=== PATIENT | male | born 1995 | race Caucasian/White ===

== ENCOUNTER 2020-03-10 07:50 | Outpatient (REF) | payer OTHER, SELFPAY | END 2020-03-10 07:51 | disposition home or self-care (01) | LOC: HO.LAB 07:50 | PROVIDERS: Visit Provider Internal Medicine | DX: Z20.828 Contact with and (suspected) exposure to other viral communicable diseases (principal) | CPT/HCPCS: C9803; U0003 ==

== ENCOUNTER 2020-06-04 09:00 | Emergency (ER) | payer OTHER, SELFPAY ==
--- NOTE | ~2020-06-04 | XR_ITS ---
EXAMINATION: XR KNEE, RIGHT CLINICAL INFORMATION: Pain status post injury COMPARISON: February 17, 2017 TECHNIQUE: Three views of the right knee. FINDINGS: There is no evidence of acute fracture or dislocation of the right knee. Right knee joint spaces are maintained. No effusion. There is a spur about the inferior patella where on prior study of February 17, 2017 and appeared to been a secondary ossification center which may have now fused. XR/XR knee RT 2V IMPRESSION: No evidence of acute fracture, effusion, or significant degenerative change of the right knee. Inferior patella spur.
[2020-06-04 11:34] VITALS: BP 125/86; PULSE 68; RESP 16; TEMP 36.4; O2SAT 98; BMI 23.1
--- NOTE | 2020-06-04 12:30 | ED_ITS ---
HPI - Extremity Injury (Lower) General Chief Complaint: Extremity Injury, Lower Stated Complaint: knee injury Time Seen by Provider: 06/04/20 11:29 Source: patient Mode of arrival: ambulatory Limitations: no limitations History of Present Illness HPI Narrative: Right knee pain after twisting in bed while changing position. States he has had prior knee injuries with with similar-type pains in setting of strains. complaint: knee injury Onset (ago): hour(s) Place: home Severity: moderate Severity scale (1-10): 5 Relieving factors: immobilization Exacerbating factors: movement Context: other (Twisted while changing position bed) Associated symptoms: able to partially bear weight Treatments prior to arrival: other (Crutches) Related Data Allergies Allergy/AdvReac Type Severity Reaction Status Date / Time amoxicillin [From AUGMENTIN] Allergy Unknown UNKNOWN Unverified 01/03/20 16:38 clavulanic acid Allergy Unknown UNKNOWN Unverified 01/03/20 16:38 [From AUGMENTIN] Review of Systems Review of Systems: Constitutional: No Weight loss, No Fever, No Chills, No Night Sweats, No Fatigue, No Malaise ENT/Mouth: No Hearing loss, No Ear Pain, No Nasal Congestion, No Sinus Pain, No Hoarseness, No sore throat, No Rhinorrhea, No Swallowing Difficulty Eyes: Negative Cardiovascular: Negative Respiratory: Negative Gastrointestinal: Negative Musculoskeletal: No joint pain, No Myalgias, No Joint Swelling, right knee pain as noted HPI Skin: No Skin Lesions, No rash Neuro: No Weakness, No Numbness, No Paresthesias, No Loss of Consciousness, No Dizziness, No Headache Psych: Negative Heme/Lymph: Negative Endocrine: Negative Yes all other systems are reviewed and are negative [facility] Past Medical History Medical History (Updated 06/04/20 @ 12:36 by Travis Lopez NP) No known health problems Social History Social History Smoked in Last 30 Days: No Use of substances other than those prescribed or required for medical reasons: No Advance Directives: No Advance Directives Information Provided: No Physical Exam Vital Signs: Vital Signs: Last Vital Signs Temp 97.6 F 06/04/20 11:34 Pulse 68 06/04/20 11:34 Resp 16 06/04/20 11:34 BP 125/86 06/04/20 11:34 Pulse Ox 98 06/04/20 11:34 Body Mass Index 23.1 Review Const: General: cooperative and healthy appearing; No acute distress or intoxicated appearing Nutritional Appearance: average body habitus Orientation/consciousness: patient oriented x3 HENMT: Head: Yes normal to inspection Ears: hearing grossly normal bilaterally Resp: Auscultation: clear to auscultation bilaterally Cardio: Rhythm: regular rhythm Heart sounds: S1 normal heart sound present and S2 normal heart sound present : General: Yes no CVA tenderness Back/Spine/Pelvis: Back: no CVA tenderness Skin: General skin exam: no rashes or lesions noted Neuro: General: patient oriented x3 Extrem: General: Yes normal to inspection Upper/lower leg/hip images: 1. Tender palpation over the medial aspect. No obvious ecchymoses or swelling were evidence of effusion. No edema or swelling, negative Homans. Neurovascularly intact. MDM - Extremity Injury (Lower) MDM Narrative Medical decision making narrative: AP 24-year-old male otherwise healthy presenting with right knee pain in the setting of twisting like injury consistent with strain type injury. X-ray without evidence of acute findings. Has crutches will provide Chavez wrap and NSAIDs with home care instructions and follow-up instructions with orthopedics. Comfortable plan. Stable for discharge. Discharge Plan Discharge Clinical Impression: Knee strain Qualifiers: Encounter type: initial encounter Laterality: right Qualified Code(s): S86.911A - Strain of unspecified muscle(s) and tendon(s) at lower leg level, right leg, initial encounter Patient Disposition: Home, Self-Care Instructions: Knee Pain (ED) Additional Instructions: Ice Elevate Compress Weightbearing as tolerated Crutches for comfort Return if any concerns or worsening symptoms otherwise follow-up with primary care doctor in next 1 week Thank you Referrals: Physician,None [Primary Care Provider] - 1 week
== END 2020-06-04 12:44 | disposition home or self-care (01) ==
PROVIDERS: Emergency Provider Emergency Medicine
DX: S86.911A Strain of unspecified muscle(s) and tendon(s) at lower leg level, right leg, initial encounter (principal); M79.604 Pain in right leg; X50.1XXA Overexertion from prolonged static or awkward postures, initial encounter; Y93.01 Activity, walking, marching and hiking; Y92.9 Unspecified place or not applicable; Y99.9 Unspecified external cause status
CPT/HCPCS: 73560; 99283

== ENCOUNTER 2020-09-08 10:21 | Outpatient (REF) | payer OTHER, SELFPAY ==
--- NOTE | ~2020-09-08 | XR_ITS ---
EXAMINATION: XR HAND, RIGHT CLINICAL INFORMATION: Pain right hand. COMPARISON: None TECHNIQUE: Right hand is imaged in 4 views. FINDINGS: There is fracture base right 5th metacarpal, likely comminuted and minimally displaced. Fracture line is faint, possibly subacute injury. There is no destructive process or dislocation. The ulnar variance is near neutral. The remainder of the bony structures appear intact. XR/XR hand RT min 3V IMPRESSION: Fracture base right 5th metacarpal.
== END 2020-09-08 10:22 | disposition home or self-care (01) ==
LOC: HO.HOSX 10:21
PROVIDERS: Visit Provider Orthopaedic Surgery
DX: S62.316D Displaced fracture of base of fifth metacarpal bone, right hand, subsequent encounter for fracture with routine healing (principal); X58.XXXD Exposure to other specified factors, subsequent encounter
CPT/HCPCS: 73130; 99202

== ENCOUNTER 2020-09-29 09:52 | Outpatient (REF) | payer OTHER, SELFPAY ==
--- NOTE | ~2020-09-29 | XR_ITS ---
EXAMINATION: XR WRIST, RIGHT CLINICAL INFORMATION: Fracture base fifth metacarpal COMPARISON: Radiographs right hand 09/08/2020. TECHNIQUE: PA, lateral, and oblique views of the right wrist. FINDINGS: The fracture base fifth metacarpal is unchanged in alignment. The fracture lines are less distinct. There is no dislocation or destructive process. No acute bony abnormality. XR/XR wrist RT min 3V IMPRESSION: Healing fracture base fifth metacarpal. No change in alignment.
== END 2020-09-29 09:53 | disposition home or self-care (01) ==
LOC: HO.HOSX 09:52
PROVIDERS: Visit Provider Orthopaedic Surgery
DX: M25.531 Pain in right wrist (principal); S62.13 Fracture of capitate [os magnum] bone; S62.316D Displaced fracture of base of fifth metacarpal bone, right hand, subsequent encounter for fracture with routine healing
CPT/HCPCS: 73110; 99212

== ENCOUNTER 2024-07-26 08:49 | Emergency (ER) | payer MEDICAID, SELFPAY ==
--- NOTE | ~2024-07-26 | XR_ITS ---
EXAMINATION: XR SACRUM AND COCCYX CLINICAL INFORMATION: fell on buttock, pain COMPARISON: None available. TECHNIQUE: 2 views of the sacrum and 2 views of the coccyx were obtained. FINDINGS: There are no fractures. No bone, joint or soft tissue abnormality is demonstrated. XR/XR sacrum coccyx min 2V IMPRESSION: Unremarkable sacrum and coccyx. SI joints unremarkable. Electronically signed by: Herbert Dalton MD 07/26/2024 11:23 AM EDT
[2024-07-26 08:52] VITALS: BP 133/94; PULSE 76; RESP 16; TEMP 36.2; O2SAT 97; BMI 26.9
--- NOTE | 2024-07-26 10:44 | ED_ITS ---
HPI - Back Pain/Injury General Chief Complaint: Back Pain/Injury Stated Complaint: tail bone pain Time Seen by Provider: 07/26/24 09:57 History of Present Illness ED Provider: Sasha Lee PA-C HPI Narrative: Patient seeks medical attention in emergency department today for evaluation of tailbone pain. About 3 years ago while patient was playing basketball he went to go jump up and he landed directly down on his butt injuring his tailbone. He reports every now and then having sensitivity to this area especially if he sits for too long. Yesterday he only sat down on the hard floor for approximately 1- 2 minutes but as soon as he got up he has felt pain there. He did have a bowel movement this morning which exacerbated the pain at the tip of his tailbone but reports a bowel movement in itself was not painful around his rectum was of normal caliber and he did not notice any blood while wiping. He denies any abdominal discomfort and does not feel nauseous. There has been no new trauma to the area. No rashes it does not itch or burn. Is a generalized ache that is worse with movement. He has tried Tylenol but it has not helped. He even tried a massage gun but that too did not help. He denies any symptoms or saddle anesthesia. When he goes to change positions sometimes pain does radiate down his legs but not in a specific dermatomal pattern does not experience any weakness paresthesias or numbness. No upper back pain and no mid back pain either.Patient denies personal history of cancer, IVDU, fevers, chills, night sweats, unintentional wt loss, saddle anesthesia, and change/loss in bladder/ bowel function. Related Data Home Medications ?Medication ?Instructions ?Recorded ?Confirmed No Known Home Meds 09/08/20 09/08/20 Allergies Allergy/AdvReac Type Severity Reaction Status Date / Time amoxicillin [From AUGMENTIN] Allergy Unknown UNKNOWN Verified 07/26/24 08:53 clavulanic acid Allergy Unknown UNKNOWN Verified 07/26/24 08:53 [From AUGMENTIN] Review of Systems Review of Systems: Yes all other systems are reviewed and are negative [facility] Past Medical History Attestation statement: The following information was validated with the patient. 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 No septic or ill-appearing. Vitals reviewed normal, PMH/Social and Surgical hx reviewed including allergies and current medications. Head: Normocephalic, no obvious trauma or skin lesions noted. Eyes: EOMI ENMT: moist oral mucosa Neck: trachea midline Cardiovascular: peripheral perfusion normal, Regular heart rate Respiratory: no respiratory distress Abdomen: nondistended Extremities: warm and moving without difficulty and no pain reproduced in tail bone area with limb movement, sensation fully intact Musculoskeletal: No midline tenderness, step-offs, or deformities of entire spine. TTP over coccygeal region only without skin changes, swelling, or ecchymosis /erythema Psych: Cooperative Neuro: Alert and oriented. Const: General: cooperative and healthy appearing Medical Decision Making Medical Decision Making MDM Narrative: Patient presents to the emergency department today for evaluation of [facility] in. MARYA is fall from three years ago with intermittent reinjurying via sitting. This is not work related. Patient is afebrile with stable vitals and well-appearing. History and physical as stated above. Patient is neurovascular intact. No infectious sxs, no rashes on skin or swelling concerning for pilonidal disease. No cellulitis present. X- rays were obtained to further evaluate sacrum/pelvic region. 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 He wanted reassurance. They show no acute fractures. Patient's symptoms are consistent with a sprain.Discussed icing it, elevating and alternating ibuprofen and Tylenol for discomfort. Discussed that if there is no significant improvement in the next 1 to 2 weeks to follow-up with an orthopedic clinic, information given. Discussed symptomatic treatment with the patient. Discussed return precautions. Patient verbalized understanding of the above plan and is in agreement with the above plan. The patient was discharged home in stable condition with return precautions. Differential Diagnosis Differential Diagnoses: The differential diagnosis associated with the presentation includes See MDM Admission/Observation Consideration of admission/observation: Escalation of care including admission/observation considered Patient would have been admitted to the hospital had his work up and clinical presentation had any findings where hospital admission was appropriate. Independent Interpretation I performed an independent interpretation of an: Plain X-Ray Interpretation: No fracture or obvious dislocation. Radiology Impression Discussion of test interpretation with radiology: I have reviewed the radiologist's reading. Radiologist Impression: no fracture. Tests considered The following testing was considered but not selected: Would have considered soft tissue ultrasound/ CT scan of pelvis if there was abscess or swelling in this area or any pain out proportion on exam. If patient was ill appearing, would have considered basic lab screening or potential sepsis work up if met criteria for it. Prescription Management I considered prescription management with: Pain Medication and Antibiotic No infection, PO abx not indicated. Pain well controlled, OTC care recommended on donut style cushion. Discharge Plan Discharge Clinical Impression: Sprain of coccyx Patient Disposition: Home, Self-Care Additional Instructions: You were evaluated for lower back pain specifically over your cecum coccyx area. There is no indication of any abscess formation other soft tissue injury. Likely sequela of old coccygeal sprain. Xray results: IMPRESSION: Unremarkable sacrum and coccyx. SI joints unremarkable. It is recommended, you try istting on a doughnut-style cushion to help prevent any additional stress on this area. Use Motrin/Advil (ibuprofen) 600 mg every 6 hours. Take this with food. Take this regularly for the next 3-5 days and then as needed. In addition, You can use Tylenol (acetaminophen) 650 mg every 6 hrs as needed for pain. ?Do not take more than 3000 mg in one day! Use intermittent heat 4 or 5 times a day, 20 minutes at a time, ?for a few days. You may use topical therapy such as IcyHot with Lidocaine or Aspercream with Lidocaine, both of which are available over the counter. Do not perform any heavy lifting. Go immediately to the Emergency Department if you develop any increased or uncontrolled pain, numbness, tingling, or weakness of the extremities, difficulty urinating or passing stools. Please see your doctor or an orthopedist if not improving over the next 1-2 weeks. Referrals: [facility] [place] [facility] [Provider Group] - 1 week Stand Alone Forms: Work/School Release Interventions: ED Discharge Assessment Last Done: 07/26/24 11:57 Discharge Date/Time: 07/26/24 11:58 Print Language: Beninese
--- OUTSIDE RECORDS SUMMARY | 2024-07-26 11:17 | XMS_ITS | Clinical Summary ---
Author Organization [facility] Address [address] [place] [address] Phone Care Team Providers Care Cardiovascular Tech Name Role Phone Unavailable Primary Care Provider Unavailabl e Immunizations Immunization Administration Dates Next Due DTP 01/16/1996 DTaP 5 08/03/2000, 7,05/21/1996,03/19 H1N1 03/11/2009 HPV, Quadrivalent 05/28/2011,06/09/2010,04/07/20 10 Hep A, Adult 02/12/2015 Hep A, ped/adol 12/18/2013 Hep B, ped/adol 05/21/1996,01/16/1996,1995 Hib (PRP-T) 1996, 7,03/19/1996,01/15 IPV 08/03/2000,05/21/1996,03/19/1996 Influenza Split 01/26/2012,05/28/2011,01/01/2010 Influenza, injectable, quadrivalent 02/12/2015 Influenza, injectable, quadr ivalent, preservative free 06/25/2016 Influenza, injectable, trivalent 12/30/2008,01/17,01/31/2007 MMR 08/03/2000,1996 Meningococcal Conj (Menactra) MCV4P 06/25/2016,1 06/01/2006 OPV 01/16/1996 Tdap 03/31/2007 Varicella 04/05/2008,07/14/1998 Family History Relation Name Status Comments Father Alive Father: Alive a nd well Half-Brother Alive Half brother (M ): Alive and well Maternal Grandfather Alive Materna l grandfather: Asthma, Diabetes Maternal Grandmother Alive Materna l grandmother: Asthma, Migraines Mother Alive Mother: Diabete s, Migraines, IBS Other No family histo ry of CVA (Stroke), No family history of Heart disease, No family history of Sudden /[place] under age 55, No family history of Thrombophilia, No family history of Dental caries Sister Alive Sister: Asthma Social History Tobacco Use Types Packs/Day Years Used Date Smoking Tobacco: Never Comments:Never smoker Sex and Gender Information Value Date Recorded Sex Assigned at Not on file Legal Sex Male 5:00 PM EDT Gender Identity Not on file Sexual Orientation Not on file Last Filed Vital Signs Vital Sign Reading Time Taken Comments Blood Pressure 108/68 06/25/2016 12:00 AM EST Pulse 74 06/25/2016 12:00 AM EST Temperature 36.8 ??C (98.3 ??F) 06/25/2016 12:[address] Respiratory Rate - - Oxygen Saturation - - Inhaled Oxygen Concentration - - Weight 68.5 kg (151 lb) 06/25/2016 12:00 AM EST Height 186.1 cm (6' 1.25 ) 06/25/2016 12:[address] Body Mass Index 19.79 06/25/2016 12:00 AM EST Plan of Treatment Health Maintenance Due Date Last Done Comments DTaP,Tdap,and Td Vaccines (7 - Td or Tdap) 03/31/2017 03/31/2007, 08/03/2000, 04/10/1997, Additional history exists Influenza Vaccines (#1) 2023 06/26/19 17, 02/12/2015, 01/26/2012, Additional history exists COVID-19 Vaccine ( season) 2023 Hepatitis B Vaccines Completed 05/21/1996, 01/16/1996, 1995 HIB Vaccines Completed 1996, 06/1996, 03/19/1996, Additional history exists IPV Vaccines Completed 08/03/2000, 06/1996, 03/19/1996, Additional history exists MMR Vaccines Completed 08/03/2000, 1996 Varicella Vaccines Completed 04/05/2008, 07/14/1998 HPV Vaccines Completed 05/28/2011, 05/20, 04/07/2010 Hepatitis A Vaccines Completed 02/12/2015, 12/19/19 14 Meningococcal Vaccine Aged Out 06/25/2016, 007 No longer eligible based on patient's age to complete this topic Men B Vaccine Aged Out No longer elig ible based on patient's age to complete this topic Pneumococcal Vaccine Aged Out No long er eligible based on patient's age to complete this topic
--- OUTSIDE RECORDS SUMMARY | 2024-07-26 11:17 | XMS_ITS | Encounter Summary ---
Author Organization [facility] Address [address] [place] [phone] Phone Care Team Providers Care Brand Marketing Specialist Name Role Phone Unavailable Primary Care Provider Unavailabl e Encounter Details Date Type Department Care Team (Late st Contact Info) Description 06/01/2011 Documentation [facility] Family Medicine [address] [place] [address] Family Medicine, Physician [facility] [place] [id number] Social History Tobacco Use Types Packs/Day Years Used Date Smoking Tobacco: Never Assessed Sex and Gender Information Value Date Recorded Sex Assigned at Not on file Legal Sex Male 5:00 PM EDT Gender Identity Not on file Sexual Orientation Not on file documented as of this encounter Plan of Treatment Not on file documented as of this encounter Visit Diagnoses Not on filedocumented in this encounter
--- OUTSIDE RECORDS SUMMARY | 2024-07-26 11:17 | XMS_ITS | Encounter Summary ---
Author Organization [facility] Address [address] [place] [phone] Phone Care Team Providers Care Laboratory Chief Name Role Phone Unavailable Primary Care Provider Unavailabl e Encounter Details Date Type Department Care Team (Late st Contact Info) Description 05/28/2013 Documentation [facility] Family Medicine [address] [place] [address] Family Medicine, Physician [facility] [place], [place] [phone] Social History Tobacco Use Types Packs/Day Years [...]
--- OUTSIDE RECORDS SUMMARY | 2024-07-26 11:17 | XMS_ITS | Encounter Summary ---
Author Organization [facility] Address [address] [place] [address] Phone Care Team Providers Care Crane Engineer Name Role Phone Unavailable Primary Care Provider Unavailabl e Encounter Details Date Type Department Care Team (Late st Contact Info) Description 08/17/2011 Documentation [facility] Family Medicine [address] [place] [address] Family Medicine, Physician [address] [place] [phone] Social History Tobacco Use Types Packs/Day Years [...]
--- OUTSIDE RECORDS SUMMARY | 2024-07-26 11:17 | XMS_ITS | Encounter Summary ---
Author Organization [facility] Address [address] [place] [address] Phone Care Team Providers Care Humanities Department Chair Name Role Phone Unavailable Primary Care Provider Unavailabl e Encounter Details Date Type Department Care Team (Late st Contact Info) Description 03/08/2012 Documentation [facility] Family Medicine [address] [place] [address] Family Medicine, Physician [address] [place] [phone] Social History Tobacco Use Types Packs/Day Years [...]
--- OUTSIDE RECORDS SUMMARY | 2024-07-26 11:17 | XMS_ITS | Encounter Summary ---
Author Organization [facility] Address [address] [place] [address] Phone Care Team Providers Care Financial Adviser Name Role Phone Unavailable Primary Care Provider Unavailabl e Encounter Details Date Type Department Care Team (Late st Contact Info) Description 12/02/2016 Documentation [facility] [place] [address] Family Medicine, Physician [facility] [place] [address] Social History Tobacco Use Types Packs/Day Years [...]
--- OUTSIDE RECORDS SUMMARY | 2024-07-26 11:18 | XMS_ITS | Encounter Summary ---
Author Organization [facility] Address [address] [place] [phone] Phone Care Team Providers Care Motor Vehicle License Clerk Name Role Phone Unavailable Primary Care Provider Unavailabl e Encounter Details Date Type Department Care Team (Late st Contact Info) Description 01/05/2010 Documentation [facility] Family Medicine [address] [place] [address] Family Medicine, Physician [address] [place] [phone] Social History Tobacco Use Types Packs/Day Years [...]
--- OUTSIDE RECORDS SUMMARY | 2024-07-26 11:18 | XMS_ITS | Encounter Summary ---
Author Organization [facility] Address [address] [place] [phone] Phone Care Team Providers Care Metal Mine Inspector Name Role Phone Unavailable Primary Care Provider Unavailabl e Encounter Details Date Type Department Care Team (Late st Contact Info) Description 03/17/2015 Documentation [facility] Family Medicine [address] [place] [address] Family Medicine, Physician [place] [address] Social History Tobacco Use Types Packs/Day Years [...]
--- OUTSIDE RECORDS SUMMARY | 2024-07-26 11:18 | XMS_ITS | Encounter Summary ---
Author Organization [facility] Address [address] [place] [address] Phone Care Team Providers Care Machine Operator Packaging Name Role Phone Unavailable Primary Care Provider Unavailabl e Encounter Details Date Type Department Care Team (Late st Contact Info) Description 12/02/2016 Conversion Encounter [facility] - [address] [address] Social History Tobacco Use Types Packs/Day Years [...]
--- OUTSIDE RECORDS SUMMARY | 2024-07-26 11:18 | XMS_ITS | Encounter Summary ---
Author Organization [facility] Address [address] [place] [address] Phone Care Team Providers Care Knotter Hand Name Role Phone Unavailable Primary Care Provider Unavailabl e Encounter Details Date Type Department Care Team (Late st Contact Info) Description 01/16/2015 Documentation [facility] Family Medicine [address] [place] [address] Family Medicine, Physician [address] [place] [address] Social History Tobacco Use Types Packs/Day Years [...]
[2024-07-26 11:57] VITALS: BP 133/94; PULSE 76; RESP 16; TEMP 36.2; O2SAT 97
== END 2024-07-26 11:58 | disposition home or self-care (01) ==
PROVIDERS: Emergency Provider Emergency Medicine
DX: S33.8XXA Sprain of other parts of lumbar spine and pelvis, initial encounter (principal); X50.1XXA Overexertion from prolonged static or awkward postures, initial encounter; X50.3XXA Overexertion from repetitive movements, initial encounter; M54.50 Low back pain, unspecified; Y93.67 Activity, basketball; Y92.89 Other specified places as the place of occurrence of the external cause; Y99.8 Other external cause status
CPT/HCPCS: 72220; 99283

== ENCOUNTER → 2024-07-26 10:41 | Outpatient (BNV) | payer OTHER, SELFPAY | PROVIDERS: Emergency Provider Emergency Medicine; Visit Provider Radiology Diagnostic Radiology | DX: M54.50 Low back pain, unspecified (principal); W19.XXXA Unspecified fall, initial encounter | CPT/HCPCS: 72220 ==

== ENCOUNTER 2024-08-13 06:04 | Emergency (ER) | payer MEDICAID, SELFPAY ==
--- NOTE | ~2024-08-13 | CT_ITS ---
CLINICAL HISTORY: r flank pain ?stone CT abdomen and pelvis without contrast Comparison: None Findings: No consolidation or effusion. Right-sided hydroureteronephrosis with a 3 x 3 mm stone in the distal right ureter just proximal to the ureterovesical junction. No other stones. The liver, gallbladder and biliary tree, pancreas, spleen and adrenal glands are unremarkable. No bowel obstruction, pneumoperitoneum, or pneumatosis. Pelvic contents unremarkable. Normal appendix. The bones are intact. IMPRESSION: 3 x 3 mm stone in the distal right ureter with upstream hydroureteronephrosis. This document has been electronically signed by: Danica Rubi MD on 08/13/2024 07:18:21
[2024-08-13 06:05] VITALS: PULSE 79; RESP 18; TEMP 36.2; O2SAT 100; BMI 27.0
--- OUTSIDE RECORDS SUMMARY | 2024-08-13 06:19 | XMS_ITS | Encounter Summary ---
Author Organization [facility] Address [address] [place] [phone] Phone Care Team Providers Care Systems Lead Name Role Phone Unavailable Primary Care Provider Unavailabl e Encounter Details Date Type Department Care Team (Late st Contact Info) Description 01/16/2015 Documentation EM Family Medicine [address] [place] [address] Family Medicine, Physician [address] [place] [address] Social History Tobacco Use Types Packs/Day Years [...]
--- OUTSIDE RECORDS SUMMARY | 2024-08-13 06:19 | XMS_ITS | Encounter Summary ---
Author Organization [facility] Address [address] [place] [phone] Phone Care Team Providers Care Professional Security Officer Name Role Phone Unavailable Primary Care Provider Unavailabl e Encounter Details Date Type Department Care Team (Late st Contact Info) Description 03/08/2012 Documentation [facility] Family Medicine [address] [place] [address] Family Medicine, Physician [address] [place], [place] [phone] Social History Tobacco Use Types Packs/Day Years [...]
--- OUTSIDE RECORDS SUMMARY | 2024-08-13 06:19 | XMS_ITS | Encounter Summary ---
Author Organization [facility] Address [address] [place] [address] Phone Care Team Providers Care Oracle Programmer Analyst Name Role Phone Unavailable Primary Care Provider Unavailabl e Encounter Details Date Type Department Care Team (Late st Contact Info) Description 01/05/2010 Documentation EM Family Medicine [address] [place] [address] Family Medicine, Physician [address] [place], [place] [phone] Social History Tobacco Use Types Packs/Day Years [...]
--- OUTSIDE RECORDS SUMMARY | 2024-08-13 06:19 | XMS_ITS | Encounter Summary ---
Author Organization [facility] Address [address] [place] [address] Phone Care Team Providers Care Automatic Embroidery Machine Tender Name Role Phone Unavailable Primary Care Provider Unavailabl e Encounter Details Date Type Department Care Team (Late st Contact Info) Description 12/02/2016 Conversion Encounter [facility] - [address] [address] Social History Tobacco Use Types Packs/Day Years [...]
--- OUTSIDE RECORDS SUMMARY | 2024-08-13 06:19 | XMS_ITS | Clinical Summary ---
Author Organization [facility] Address [address] [place] [address] Phone Care Team Providers Care Director Safety Name Role Phone Unavailable Primary Care Provider [...] Heart disease, No family history of Sudden /PR under age 55, No family history of [...]
--- OUTSIDE RECORDS SUMMARY | 2024-08-13 06:19 | XMS_ITS | Encounter Summary ---
Author Organization [facility] Address [address] [place] [address] Phone Care Team Providers Care Outsole Beveler Name Role Phone Unavailable Primary Care Provider Unavailabl e Encounter Details Date Type Department Care Team (Late st Contact Info) Description 03/17/2015 Documentation [facility] Family Medicine [address] [place] [address] Family Medicine, Physician [facility] [place] [address] Social History Tobacco Use Types Packs/Day Years [...]
--- OUTSIDE RECORDS SUMMARY | 2024-08-13 06:19 | XMS_ITS | Encounter Summary ---
Author Organization [facility] Address [address] [place] [address] Phone Care Team Providers Care Jewelry Estimator Name Role Phone Unavailable Primary Care Provider Unavailabl e Encounter Details Date Type Department Care Team (Late st Contact Info) Description 12/02/2016 Documentation [facility] [place] [address] Family Medicine, Physician [facility] [place] [address] Social History Tobacco Use Types Packs/Day Years [...]
--- OUTSIDE RECORDS SUMMARY | 2024-08-13 06:19 | XMS_ITS | Encounter Summary ---
Author Organization [facility] Address [address] [place] [address] Phone Care Team Providers Care Wet Silk Hanger Name Role Phone Unavailable Primary Care Provider Unavailabl e Encounter Details Date Type Department Care Team (Late st Contact Info) Description 08/17/2011 Documentation EM Family Medicine [address] [place] [address] Family Medicine, Physician [address] [place], [place] [phone] Social History Tobacco Use Types Packs/Day Years [...]
--- OUTSIDE RECORDS SUMMARY | 2024-08-13 06:19 | XMS_ITS | Encounter Summary ---
Author Organization [facility] Address [address] [place] [address] Phone Care Team Providers Care [employer] Nurse Name Role Phone Unavailable Primary Care Provider Unavailabl e Encounter Details Date Type Department Care Team (Late st Contact Info) Description 06/01/2011 Documentation EM Family Medicine [address] [place] [address] Family Medicine, [facility] [place], [place] [phone] Social History Tobacco Use Types Packs/Day Years [...]
[2024-08-13 06:30] LABS: MANUAL DIFF FLAG NO
[2024-08-13 06:31] LABS: Basophils Absolute Auto 0.1 X10*3/uL (0.0-0.2); Basophils Percent Auto 0.9 % (0-2); Eosinophils Absolute Auto 0.1 X10*3/uL (0.0-0.4); Eosinophils Percent Auto 1.5 % (0-4); Hematocrit 42.6 % (42.0-52.0); Imm Gran Abs Auto 0.07 X10*3/uL (0.00-0.03); Imm Gran Pct Auto 0.8 % (0.0-0.4); Lymphocytes Absolute Auto 4.2 X10*3/uL (1.2-4.9); Lymphocytes Percent Auto 48.9 % (20-40); Mean Corpuscular HGB Conc 35.2 g/dl (31.0-36.0); Mean Corpuscular Hemoglobin 29.6 pg (27.0-33.0); Mean Corpuscular Volume 84.2 fL (80.0-98.0); Mean Platelet Volume 9.4 fL (9.4-12.4); Monocytes Absolute Auto 0.7 X10*3/uL (0.1-1.2); Monocytes Percent Auto 7.9 % (2-11); Neutrophils Absolute Auto 3.4 x10*3/uL (2.0-8.3); Platelet Count 242 X10*3/uL (160-400); Red Blood Count 5.06 X10*6/uL (4.60-5.80); White Blood Count 8.5 X10*3/uL (4.8-10.8)
[2024-08-13] MEDS: ondansetron HCL 4 MG/2 ML VIAL IVPUSH (06:32)
[2024-08-13] MEDS: Morphine Sulfate 4 MG/ML CARTRIDGE IVPUSH ×3 (06:32→09:52)
[2024-08-13] MEDS: Ketorolac Tromethamine 30 MG/ML VIAL IVPUSH (06:32)
[2024-08-13] MEDS: 0.9 % Sodium Chloride 1,000 ML 999 ML IV (06:37)
--- NOTE | 2024-08-13 06:38 | ED_ITS ---
HPI - Abdominal Pain General Chief Complaint: Abdominal Pain Stated Complaint: abd pain Time Seen by Provider: 08/13/24 06:37 Source: patient Mode of arrival: ambulatory Limitations: no limitations History of Present Illness ED Provider: Dr. Ish Posada HPI narrative: 28-year-old male with no significant past medical history who presents emergency department for evaluation of sudden onset of right lower quadrant and right flank pain which started at 05:30 hours. He describes the pain as a greater than 10/10 stabbing pain located in his right lower quadrant and radiating to his back. Patient had associated nausea with no vomiting. He denied fever, chills, chest pain, shortness of breath, frequency, urgency or dysuria. This is his 1st episode of this type of pain. Related Data Previous Rx's ?Medication ?Instructions ?Recorded morphine 15 mg immediate release 15 mg PO Q6H PRN pain #14 tabs 08/13/24 tablet ondansetron 4 mg disintegrating 4 mg PO Q6-8H PRN nausea and 08/13/24 tablet vomiting #14 tabs tamsulosin 0.4 mg capsule (Flomax) 0.4 mg PO DAILY #30 caps 08/13/24 Allergies Allergy/AdvReac Type Severity Reaction Status Date / Time amoxicillin [From AUGMENTIN] Allergy Unknown UNKNOWN Verified 08/13/24 06:06 clavulanic acid Allergy Unknown UNKNOWN Verified 08/13/24 06:06 [From AUGMENTIN] Review of Systems Review of Systems Yes all other systems are reviewed and are negative [facility] Past Medical History [facility] Narrative: Social history: The patient denied tobacco, alcohol or drug use. 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 Physical Exam ED Vital Signs: Vital Signs - 24 hr 08/13/24 06:05 08/13/24 06:55 08/13/24 07:26 Temperature 97.2 F 97.7 F 97.8 F Pulse Rate 79 49 L 56 Respiratory Rate 18 20 17 Blood Pressure 131/87 130/79 Pulse Oximetry 100 97 95 Oxygen Delivery Method Room Air Room Air Room Air 08/13/24 12:03 Temperature 0 F L Pulse Rate 65 Respiratory Rate 18 Blood Pressure 118/62 Pulse Oximetry 98 Oxygen Delivery Method Room Air BMI result Body Mass Index 27.0 Initial vital signs were normal Exam: General: Awake, appears to be in moderate distress secondary to his pain Head: Normocephalic, atraumatic EENT: PERRL, Lids normal, sclera normal, conjunctiva normal, nose normal , ears normal, throat without erythema or exudates Neck: Supple, no adenopathy Lung: breath sounds symmetric, no wheezing, rales or rhonchi Chest: symmetric movement, nontender Heart: regular rate and rhythm, normal S1, S2 no murmurs or rubs Abdomen: soft, mild to moderate right lower quadrant tenderness, nondistended, normal bowel sounds Back: Mild right CVA tenderness Extremities: no deformities, moves all extremities symmetrically Neuro: Awake, alert, oriented, normal speech, cranial nerves intact, moves all extremities symmetrically Psych: Pleasant, cooperative Medical Decision Making Medical Decision Making MDM Narrative: 8-year-old male with no significant past medical history who presents emergency department for evaluation of sudden onset of right lower quadrant and right flank pain which started at 05:30 hours. He describes the pain as a greater than 10/10 stabbing pain located in his right lower quadrant and radiating to his back. Patient had associated nausea with no vomiting. He denied fever, chills, chest pain, shortness of breath, frequency, urgency or dysuria. This is his 1st episode of this type of pain. Vital signs were normal. On examination the patient appeared to be in distress secondary to his pain, he had mild right CVA tenderness and mild to moderate right lower quadrant tenderness Differential diagnosis: ?Includes but is not limited to pancreatitis, diverticulitis, appendicitis, ureteral stone, anemia, electrolyte abnormalities Course: My independent interpretation patient's laboratory evaluation as follows: CBC was normal. CMP revealed an elevated glucose of 133. Lipase was normal. Patient's CT scan of the abdomen pelvis revealed a 3 x 3 cm distal right ureteral stone which explains the patient's pain. The patient was treated with normal saline IV x1 L, Toradol 30 mg IV, morphine 4 mg IV times 3 doses and Zofran 4 mg IV. Patient felt significantly better after the above treatment. He was discharged home with printed and verbal instructions. He was advised to take Tylenol and ibuprofen for pain not relieved by these medications he was prescribed morphine. He was also given a prescription for Zofran ODT and Flomax 0.4 mg q.day until he passes the stone. Patient was given instructions on how to strain his urine. He was advised to follow-up with our on-call urologist, Dr. Bennett for re-evaluation and further treatment. Admission/Observation Consideration of admission/observation: Escalation of care including admission/observation considered (Yes) Lab Data MDM Lab Attestation statement: I reviewed the patient's lab results. 08/13/24 06:25 08/13/24 06:25 Labs: Lab Results 08/13/24 Range/Units 06:25 WBC 8.5 (4.8-10.8) X10*3/uL RBC 5.06 (4.60-5.80) X10*6/uL Hgb 15.0 (14.0-18.0) g/dl Hct 42.6 (42.0-52.0) % MCV 84.2 (80.0-98.0) fL MCH 29.6 (27.0-33.0) pg MCHC 35.2 (31.0-36.0) g/dl RDW 12.0 (11.0-16.0) % Plt Count 242 (160-400) X10*3/uL MPV 9.4 (9.4-12.4) fL Immature Gran % (Auto) 0.8 H (0.0-0.4) % Neut % (Auto) 40.0 L (45-73) % Lymph % (Auto) 48.9 H (20-40) % [place] % (Auto) 7.9 (2-11) % Eos % (Auto) 1.5 (0-4) % Baso % (Auto) 0.9 (0-2) % Lymph # (Auto) 4.2 (1.2-4.9) X10*3/uL [place] # (Auto) 0.7 (0.1-1.2) X10*3/uL Eos # (Auto) 0.1 (0.0-0.4) X10*3/uL Baso # (Auto) 0.1 (0.0-0.2) X10*3/uL Abs Immat Gran (auto) 0.07 H (0.00-0.03) X10*3/uL Absolute Neuts (auto) 3.4 (2.0-8.3) x10*3/uL Absolute Nucleated RBC 0.000 (0.0-0.012) X10*3/uL Nucleated RBC % (auto) 0.0 (0.0-0.2) /100WBC Sodium 139 (135-145) mmol/L Potassium 3.9 (3.3-5.1) mmol/L Chloride 108 (96-108) mmol/L Carbon Dioxide 21 L (22-29) mmol/L Anion Gap 14 (12-20) BUN 14 (9-16) mg/dL Creatinine 1.09 (0.5-1.4) mg/dL Estim Creat Clear Calc 117.3 Estimated GFR > 60 Random Glucose 133 H (60-115) mg/dL Calcium 9.2 (8.4-10.2) mg/dL Total Bilirubin 0.4 (0.0-1.0) mg/dL AST 25 (5-37) U/L ALT 37 (0-40) U/L Alkaline Phosphatase 60 (39-117) U/L Total Protein 7.4 (6.5-8.0) g/dL Albumin 4.2 (3.5-5.0) g/dL Lipase 22 (8-78) U/L Radiology Impression Discussion of test interpretation with radiology: I have reviewed the radiologist's reading. Radiologist Impression: CT abdomen and pelvis without contrast Comparison: None Findings: No consolidation or effusion. Right-sided hydroureteronephrosis with a 3 x 3 mm stone in the distal right ureter just proximal to the ureterovesical junction. No other stones. The liver, gallbladder and biliary tree, pancreas, spleen and adrenal glands are unremarkable. No bowel obstruction, pneumoperitoneum, or pneumatosis. Pelvic contents unremarkable. Normal appendix. The bones are intact. IMPRESSION: 3 x 3 mm stone in the distal right ureter with upstream hydroureteronephrosis. This document has been electronically signed by: Danica Rubi MD on 08/13/2024 07:18:21 Prescription Management I considered prescription management with: Pain Medication (Morphine) and Other (Antiemetic: Zofran ODT, Flomax) Medications Administered Discontinued Medications Generic Name Dose Route Start Last Admin Trade Name Freq PRN Reason Stop Dose Admin Sodium Chloride 1,000 mls @ 999 mls/hr 08/13/24 06:28 08/13/24 07:00 Ns IV 08/13/24 07:28 Infused .Q1H1M ONE Infusion Ketorolac Tromethamine 30 mg 08/13/24 06:28 08/13/24 06:32 Ketorolac Tromethamine 30 Mg/Ml Vial IVPUSH 08/13/24 06:29 30 mg ONCE ONE Administration Morphine Sulfate 4 mg 08/13/24 06:28 08/13/24 06:32 Morphine Sulfate 4 Mg/Ml Cartridge IVPUSH 08/13/24 06:29 4 mg ONCE ONE Administration Protocol Morphine Sulfate 4 mg 08/13/24 07:16 08/13/24 07:23 Morphine Sulfate 4 Mg/Ml Cartridge IVPUSH 08/13/24 07:17 4 mg ONCE STA Administration Protocol Morphine Sulfate 4 mg 08/13/24 09:30 08/13/24 09:52 Morphine Sulfate 4 Mg/Ml Cartridge IVPUSH 08/13/24 09:31 4 mg ONCE STA Administration Protocol Ondansetron HCl 4 mg 08/13/24 06:28 08/13/24 06:32 Ondansetron Hcl 4 Mg/2 Ml Vial IVPUSH 08/13/24 06:29 4 mg ONCE ONE Administration Discharge Plan Discharge Clinical Impression: Ureteral colic, Right distal ureteral calculus Patient Disposition: Home, Self-Care Instructions: How to Strain Your Urine (ED), Ureteral Stones (ED) Additional Instructions: Your blood work was unremarkable. The CAT scan of your abdomen pelvis revealed a 3 x 3 mm stone in your right ureter (the tube that connects the kidney to the bladder). This is the cause of your severe pain. Take ibuprofen 200 mg pills, 2 pills every 6 hours as needed for pain. Take Tylenol (acetaminophen) 2 pills every 6 hours as needed for pain. For pain not relieved by ibuprofen or Tylenol take morphine 15 mg pills, 1 pill every 6 hours as needed for pain. This medication will make you sleepy, do not drive or work while taking this medication. Morphine is a narcotic medication and can be addicting. If you are concerned about addiction you can ask the pharmacist for less pills or do not get this prescription filled. Take Zofran ODT 4 mg pills, 1 pill dissolved in your mouth every 8 hours as needed for nausea and vomiting. Take Flomax (tamsulosin) 0.4 mg once a day for the next 2 weeks or until you pass the stone. ?This medication helps relax the ureter and may help you pass the stone sooner. Strain your urine to see if you can catch a kidney stone. If you catch a kidney stone bring it to you were urology appointment. Follow-up with our urologist on-call Dr. Bennett in 1 to 2 weeks for re- evaluation. Please return to the emergency department if your symptoms get worse or if you develop any symptoms that are concerning to you. Prescriptions: New tamsulosin [Flomax] 0.4 mg capsule 0.4 mg PO DAILY Qty: 30 0RF morphine 15 mg tablet 15 mg PO Q6H PRN (Reason: pain) Qty: 14 0RF Rx Instructions: Partial Fill upon patient request. ondansetron 4 mg tablet,disintegrating 4 mg PO Q6-8H PRN (Reason: nausea and vomiting) Qty: 14 0RF Referrals: Deacon Bennett MD [Physician] - 1 week (3 x 3 mm left distal ureteral stone) Interventions: ED Discharge Assessment Last Done: 08/13/24 12:03 Discharge Date/Time: 08/13/24 12:03 Print Language: [place]an
[2024-08-13 06:51] LABS: Alanine Aminotransferase 37 U/L (0-40); Albumin Level 4.2 g/dL (3.5-5.0); Alkaline Phosphatase 60 U/L (39-117); Anion Gap 14 (12-20); Aspartate Amino Transferase 25 U/L (5-37); Bilirubin Total 0.4 mg/dL (0.0-1.0); Blood Urea Nitrogen 14 mg/dL (9-16); Calcium 9.2 mg/dL (8.4-10.2); Carbon Dioxide 21 mmol/L (22-29); Chloride 108 mmol/L (96-108); Creatinine Clr Calc Pharmacy 117.3; Estimated Glomerular Filt Rate > 60; Glucose Random 133 mg/dL (60-115); Lipase 22 U/L (8-78); Potassium 3.9 mmol/L (3.3-5.1); Sodium 139 mmol/L (135-145); Total Protein 7.4 g/dL (6.5-8.0)
[2024-08-13 06:55] VITALS: BP 131/87; PULSE 49; RESP 20; TEMP 36.5; O2SAT 97
[2024-08-13 07:26] VITALS: BP 130/79; PULSE 56; RESP 17; TEMP 36.6; O2SAT 95
[2024-08-13 12:03] VITALS: BP 118/62; PULSE 65; RESP 18; TEMP -17.7; TEMP 0; O2SAT 98
== END 2024-08-13 12:03 | disposition home or self-care (01) ==
PROVIDERS: Emergency Provider Emergency Medicine Emergency Medical Services
DX: N20.1 Calculus of ureter (principal); R10.31 Right lower quadrant pain; R10.2 Pelvic and perineal pain; R11.0 Nausea; Z79.899 Other long term (current) drug therapy
CPT/HCPCS: 36415; 74176; 80053; 83690; 85025; 96374; 96375; 96376; 99284; J1885; J2270; J2405

== ENCOUNTER → 2024-08-13 06:29 | Outpatient (BNV) | payer OTHER, MEDICAID, SELFPAY | PROVIDERS: Emergency Provider Emergency Medicine Emergency Medical Services; Visit Provider Radiology Diagnostic Radiology | DX: N13.2 Hydronephrosis with renal and ureteral calculous obstruction (principal) | CPT/HCPCS: 74176 ==

== ENCOUNTER 2024-10-16 11:32 | Emergency (ER) | payer OTHER, SELFPAY ==
--- NOTE | ~2024-10-16 | US_ITS ---
EXAMINATION: US SCROTUM CLINICAL INFORMATION: Right scrotal pain. COMPARISON: 03/13/2015 TECHNIQUE: A sonogram of the scrotum was performed assessing herndon-scale appearance and color Doppler flow. Spectral Doppler analysis of the arterial and venous flow were performed in the testes bilaterally. FINDINGS: RIGHT: Right testicle measures 4.6 x 2.1 x 2.5 cm, volume 14 mL. No focal testicular parenchymal lesions are visualized. Spectral Doppler analysis of the arterial and venous flow is present in the right testis. Right epididymal head is normal in size. Trace hydrocele is present. Right epididymal Doppler flow is present LEFT: Left testicle measures 3.8 x 2.0 x 2.8 cm, volume 11 mL. No focal testicular parenchymal lesions are visualized. Spectral Doppler analysis of the arterial and venous flow is present in the left testis. Left epididymal head demonstrates a 3 mm anechoic cyst with increased through transmission, no change. Trace hydrocele is noted. Left epididymal Doppler flow is present US/US scrotum doppler IMPRESSION: Unremarkable scrotal ultrasound. Stable 3 mm left epididymal head cyst. Electronically signed by: Artur Mustafa MD 10/16/2024 02:00 PM EDT
--- NOTE | ~2024-10-16 | US_ITS ---
EXAMINATION: US SCROTUM CLINICAL INFORMATION: Right scrotal pain. COMPARISON: 03/13/2015 TECHNIQUE: A sonogram of the scrotum was performed assessing herndon-scale appearance and color Doppler flow. Spectral Doppler analysis of the arterial and venous flow were performed in the testes bilaterally. FINDINGS: RIGHT: Right testicle measures 4.6 x 2.1 x 2.5 cm, volume 14 mL. No focal testicular parenchymal lesions are visualized. Spectral Doppler analysis of the arterial and venous flow is present in the right testis. Right epididymal head is normal in size. Trace hydrocele is present. Right epididymal Doppler flow is present LEFT: Left testicle measures 3.8 x 2.0 x 2.8 cm, volume 11 mL. No focal testicular parenchymal lesions are visualized. Spectral Doppler analysis of the arterial and venous flow is present in the left testis. Left epididymal head demonstrates a 3 mm anechoic cyst with increased through transmission, no change. Trace hydrocele is noted. Left epididymal Doppler flow is present US/US scrotum IMPRESSION: Unremarkable scrotal ultrasound. Stable 3 mm left epididymal head cyst. Electronically signed by: Artur Mustafa MD 10/16/2024 02:00 PM EDT
[2024-10-16 11:49] VITALS: BP 123/84; PULSE 78; RESP 16; TEMP 36.8; O2SAT 96; BMI 27.1
--- NOTE | 2024-10-16 11:49 | ED.MALEGU ---
HPI - Male Genitourinary General Chief complaint: Urogenital-Male Stated complaint: Testicular Pain Sent by Time Seen by Provider: 10/16/24 14:13 Related Data Previous Rx's ?Medication ?Instructions ?Recorded morphine 15 mg immediate release 15 mg PO Q6H PRN pain #14 tabs 08/13/24 tablet ondansetron 4 mg disintegrating 4 mg PO Q6-8H PRN nausea and 08/13/24 tablet vomiting #14 tabs tamsulosin 0.4 mg capsule (Flomax) 0.4 mg PO DAILY #30 caps 08/13/24 doxycycline hyclate 100 mg capsule 100 mg PO BID cough 7 days #14 caps 10/16/24 Allergies Allergy/AdvReac Type Severity Reaction Status Date / Time amoxicillin (From AUGMENTIN) Allergy Unknown UNKNOWN Verified 10/16/24 11:51 clavulanic acid (From Allergy Unknown UNKNOWN Verified 10/16/24 11:51 AUGMENTIN) PMFSH Past Medical History Medical History No known health problems Social History Social History Alcohol intake: never Advance Directives: No Advance Directives Information Provided: No Do you have a plan to hurt others: No Plan Current occupational status: employed 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 Patient is a 28-year-old male past medical history of nephrolithiasis who presents emergency department for evaluation. He reports onset of right testicular pain yesterday that was intermittent, today has been come more constant. Denies associated redness or swelling. Denies any penile discharge. Denies concern for sexually transmitted infections. Denies abdominal pain, back pain, nausea, vomiting, fevers or chills. He presented to an urgent care and was referred to the emergency department to rule out torsion plan: Serum labs, urinalysis clean catch and CT /NG, ultrasound Medical Decision Making Lab Data 10/16/24 12:21 10/16/24 12:21 Labs: Lab Results 10/16/24 10/16/24 Range/Units 12:18 12:21 WBC 5.4 (4.8-10.8) X10*3/uL RBC 5.21 (4.60-5.80) X10*6/uL Hgb 15.4 (14.0-18.0) g/dl Hct 44.1 (42.0-52.0) % MCV 84.6 (80.0-98.0) fL MCH 29.6 (27.0-33.0) pg MCHC 34.9 (31.0-36.0) g/dl RDW 12.3 (11.0-16.0) % Plt Count 158 L D (160-400) X10*3/uL MPV 10.5 (9.4-12.4) fL Immature Gran % (Auto) 0.4 (0.0-0.4) % Neut % (Auto) 58.5 (45-73) % Lymph % (Auto) 29.9 (20-40) % [place] % (Auto) 8.5 (2-11) % Eos % (Auto) 2.0 (0-4) % Baso % (Auto) 0.7 (0-2) % Lymph # (Auto) 1.6 (1.2-4.9) X10*3/uL [place] # (Auto) 0.5 (0.1-1.2) X10*3/uL Eos # (Auto) 0.1 (0.0-0.4) X10*3/uL Baso # (Auto) 0.0 (0.0-0.2) X10*3/uL Abs Immat Gran (auto) 0.02 (0.00-0.03) X10*3/uL Absolute Neuts (auto) 3.2 (2.0-8.3) x10*3/uL Absolute Nucleated RBC 0.000 (0.0-0.012) X10*3/uL Nucleated RBC % (auto) 0.0 (0.0-0.2) /100WBC Sodium 140 (135-145) mmol/L Potassium 4.7 D (3.3-5.1) mmol/L Chloride 107 (96-108) mmol/L Carbon Dioxide 26 (22-29) mmol/L Anion Gap 12 (12-20) BUN 12 (9-16) mg/dL Creatinine 1.01 (0.5-1.4) mg/dL Estim Creat Clear Calc 126.6 Estimated GFR > 60 Random Glucose 112 (60-115) mg/dL Calcium 9.9 D (8.4-10.2) mg/dL Total Bilirubin 0.4 (0.0-1.0) mg/dL AST 32 (5-37) U/L ALT 45 H (0-40) U/L Alkaline Phosphatase 63 (39-117) U/L Total Protein 8.2 H (6.5-8.0) g/dL Albumin 4.8 (3.5-5.0) g/dL Urine Color Yellow Urine Appearance Clear Urine pH 5.5 (5.0-9.0) Ur Specific [place] 1.020 (1.005-1.025) Urine Protein Negative (Neg-Trace) mg/dL Urine Glucose (UA) Negative (Negative) mg/dL Urine Ketones Negative (Negative) mg/dL Urine Blood Negative (Negative) Urine Nitrite Negative (Negative) Ur Leukocyte Esterase Negative (Negative) Ur N gonorrhoeae DNA (PCR) NOT DETECTED (Not Detect.) Ur Chlamydia DNA (PCR) NOT DETECTED (Not Detect.) Discharge Plan Discharge Clinical Impression: Pain in right testicle Patient Disposition: Home, Self-Care Instructions: Testicle Pain (ED) Prescriptions: New doxycycline hyclate 100 mg capsule 100 mg PO BID 7 Days Qty: 14 0RF No Action tamsulosin [Flomax] 0.4 mg capsule 0.4 mg PO DAILY Qty: 30 0RF morphine 15 mg tablet 15 mg PO Q6H PRN (Reason: pain) Qty: 14 0RF Rx Instructions: Partial Fill upon patient request. ondansetron 4 mg tablet,disintegrating 4 mg PO Q6-8H PRN (Reason: nausea and vomiting) Qty: 14 0RF Referrals: Deacon Bennett MD [Physician, Urology] - 10/18/24 Print Language: Swedish
[2024-10-16 12:26] LABS: MANUAL DIFF FLAG NO
[2024-10-16 12:28] LABS: Appearance Urine Clear; Glucose Urine UA Negative (Negative); PH 5.5 (5.0-9.0); Specific Gravity - Urine 1.020 (1.005-1.025)
[2024-10-16 12:29] LABS: Hematocrit 44.1 % (42.0-52.0); Hemoglobin 15.4 g/dl (14.0-18.0); Imm Gran Abs Auto 0.02 X10*3/uL (0.00-0.03); Imm Gran Pct Auto 0.4 % (0.0-0.4); Lymphocytes Absolute Auto 1.6 X10*3/uL (1.2-4.9); Mean Corpuscular HGB Conc 34.9 g/dl (31.0-36.0); Mean Corpuscular Hemoglobin 29.6 pg (27.0-33.0); Mean Corpuscular Volume 84.6 fL (80.0-98.0); NRBC Abs Auto 0.000 X10*3/uL (0.0-0.012); NRBC Pct Auto 0.0 /100WBC (0.0-0.2); Platelet Count 158 X10*3/uL (160-400); Red Blood Count 5.21 X10*6/uL (4.60-5.80); White Blood Count 5.4 X10*3/uL (4.8-10.8)
[2024-10-16 12:40] LABS: Alanine Aminotransferase 45 U/L (0-40); Albumin Level 4.8 g/dL (3.5-5.0); Alkaline Phosphatase 63 U/L (39-117); Anion Gap 12 (12-20); Aspartate Amino Transferase 32 U/L (5-37); Blood Urea Nitrogen 12 mg/dL (9-16); Calcium 9.9 mg/dL (8.4-10.2); Carbon Dioxide 26 mmol/L (22-29); Chloride 107 mmol/L (96-108); Creatinine Clr Calc Pharmacy 126.6; Estimated Glomerular Filt Rate > 60; Potassium 4.7 mmol/L (3.3-5.1); Sodium 140 mmol/L (135-145); Total Protein 8.2 g/dL (6.5-8.0)
[2024-10-16 13:57] LABS: CT PCR Urine NOT DETECTED (Not Detect.); NG PCR Urine NOT DETECTED (Not Detect.)
[2024-10-16 14:16] VITALS: BP 123/71; PULSE 73; RESP 18; TEMP 36.5; O2SAT 97
--- OUTSIDE RECORDS SUMMARY | 2024-10-16 14:32 | XMS_ITS | Encounter Summary ---
Author Organization [facility] Address [address] [place] [address] Phone Care Team Providers Care Business Development Sales Executive Name Role Phone Unavailable Primary Care Provider Unavailabl e Encounter Details Date Type Department Care Team (Late st Contact Info) Description 05/28/2013 Documentation EM Family Medicine [address] [place] [address] Family Medicine, Physician Counts include 234 beds at the [facility] [place] [address] Social History Tobacco Use Types Packs/Day Years [...]
--- NOTE | 2024-10-16 14:37 | ED_ITS ---
HPI - Male Genitourinary General Chief complaint: Urogenital-Male Stated complaint: Testicular Pain Sent by Time Seen by Provider: 10/16/24 14:13 History of Present Illness HPI Narrative: Patient is a 28-year-old male with a history of right testicular pain started yesterday there is no specific trigger sexually active 1 partner denies any penile discharge there is no fever no chills. There is no systemic complaints. Patient from home. Related Data Previous Rx's ?Medication ?Instructions ?Recorded morphine 15 mg immediate release 15 mg PO Q6H PRN pain #14 tabs 08/13/24 tablet ondansetron 4 mg disintegrating 4 mg PO Q6-8H PRN naus ea and 08/13/24 tablet vomiting #14 tabs tamsulosin 0.4 mg capsule (Flomax) 0.4 mg PO DAILY #30 caps 08/13/24 doxycycline hyclate 100 mg capsule 100 mg PO BID cough 7 days #14 caps 10/16/24 Allergies Allergy/AdvReac Type Severity Reaction Status Date / Time amoxicillin (From AUGMENTIN) Allergy Unknown UNKNOWN Verified 10/16/24 11:51 clavulanic acid (From Allergy Unknown UNKNOWN Verified 10/16/24 11:51 AUGMENTIN) Review of Systems 2 Review of Systems: No fever no chills positive right testicular pain Yes all other systems are reviewed and are negative [facility] Past Medical History Attestation statement: The following information was validated with the patient. Medical History No known health problems Social History Social History Alcohol intake: never Advance Directives: No Advance Directives Information Provided: No Do you have a plan to hurt others: No Plan Current occupational status: employed Current occupation: [employer] handed Physical Exam 2 Vital Signs: Vital Signs: Last Vital Signs Temp 97.7 F 10/16/24 14:16 Pulse 73 10/16/24 14:16 Resp 18 10/16/24 14:16 BP 123/71 10/16/24 14:16 Pulse Ox 97 10/16/24 14:16 O2 Del Method Room Air 10/16/24 14:16 BMI result Body Mass Index 27.1 Appearance: Alert. Oriented X3. No acute distress. Eyes: Pupils equal, round and reactive to light. ENT: Pharynx normal. Neck: Normal inspection. Neck supple. No lymph nodes noted. No crepitus CVS: Normal heart rate and rhythm. Pulses normal. Normal S1 and S2 Respiratory: No respiratory distress. Breath sounds normal. No Wheezing. No rales Abdomen: Soft and nontender. No rigidity. No distention. good BS x4 Skin: Skin warm and dry. Normal skin color. Normal skin turgor. Genitalia exam was done with tech present. There is no discharged on stripping of the penis. There is no testicular tenderness noted bilaterally. cremasteric reflex was intact bilaterally Extremities: No lower extremity edema. Neurovascular intact to all extremities. No Lacerations. No Rash Neuro: Oriented X 3. No motor deficit. No sensory deficit. Moving all extermities. No slurred speech Medical Decision Making Medical Decision Making [facility] Narrative: Ultrasound of the testicle was read by radiology's grossly negative. There is no evidence for torsion there is a testicular cyst noted on the right side question if that is the cause of patient's pain but patient has follow-up on an outpatient basis will treat patient's with Rocephin and doxycycline follow-up on an outpatient basis. Differential Diagnosis Differential Diagnoses: The differential diagnosis associated with the presentation includes STD, torsion, nonspecific pain Admission/Observation Consideration of admission/observation: Escalation of care including admission/observation considered Lab Data [facility] Lab Attestation statement: I reviewed the patient's lab results. 10/16/24 12:21 10/16/24 12:21 Labs: Lab Results 10/16/24 10/16/24 Range/Units 12:18 12:21 WBC 5.4 (4.8-10.8) X10*3/uL RBC 5.21 (4.60-5.80) X10*6/uL Hgb 15.4 (14.0-18.0) g/dl Hct 44.1 (42.0-52.0) % MCV 84.6 (80.0-98.0) fL MCH 29.6 (27.0-33.0) pg MCHC 34.9 (31.0-36.0) g/dl RDW 12.3 (11.0-16.0) % Plt Count 158 L D (160-400) X10*3/uL MPV 10.5 (9.4-12.4) fL Immature Gran % (Auto) 0.4 (0.0-0.4) % Neut % (Auto) 58.5 (45-73) % Lymph % (Auto) 29.9 (20-40) % Alcorn % (Auto) 8.5 (2-11) % Eos % (Auto) 2.0 (0-4) % Baso % (Auto) 0.7 (0-2) % Lymph # (Auto) 1.6 (1.2-4.9) X10*3/uL Alcorn # (Auto) 0.5 (0.1-1.2) X10*3/uL Eos # (Auto) 0.1 (0.0-0.4) X10*3/uL Baso # (Auto) 0.0 (0.0-0.2) X10*3/uL Abs Immat Gran (auto) 0.02 (0.00-0.03) X10*3/uL Absolute Neuts (auto) 3.2 (2.0-8.3) x10*3/uL Absolute Nucleated RBC 0.000 (0.0-0.012) X10*3/uL Nucleated RBC % (auto) 0.0 (0.0-0.2) /100WBC Sodium 140 (135-145) mmol/L Potassium 4.7 D (3.3-5.1) mmol/L Chloride 107 (96-108) mmol/L Carbon Dioxide 26 (22-29) mmol/L Anion Gap 12 (12-20) BUN 12 (9-16) mg/dL Creatinine 1.01 (0.5-1.4) mg/dL Estim Creat Clear Calc 126.6 Estimated GFR > 60 Random Glucose 112 (60-115) mg/dL Calcium 9.9 D (8.4-10.2) mg/dL Total Bilirubin 0.4 (0.0-1.0) mg/dL AST 32 (5-37) U/L ALT 45 H (0-40) U/L Alkaline Phosphatase 63 (39-117) U/L Total Protein 8.2 H (6.5-8.0) g/dL Albumin 4.8 (3.5-5.0) g/dL Urine Color Yellow Urine Appearance Clear Urine pH 5.5 (5.0-9.0) Ur Specific [place] 1.020 (1.005-1.025) Urine Protein Negative (Neg-Trace) mg/dL Urine Glucose (UA) Negative (Negative) mg/dL Urine Ketones Negative (Negative) mg/dL Urine Blood Negative (Negative) Urine Nitrite Negative (Negative) Ur Leukocyte Esterase Negative (Negative) Ur N gonorrhoeae DNA (PCR) NOT DETECTED (Not Detect.) Ur Chlamydia DNA (PCR) NOT DETECTED (Not Detect.) Radiology Impression Discussion of test interpretation with radiology: I have reviewed the radiologist's reading. Discharge Plan Discharge Clinical Impression: Pain in right testicle Patient Disposition: Home, Self-Care Instructions: Testicle Pain (ED) Prescriptions: New doxycycline hyclate 100 mg capsule 100 mg PO BID 7 Days Qty: 14 0RF No Action tamsulosin [Flomax] 0.4 mg capsule 0.4 mg PO DAILY Qty: 30 0RF morphine 15 mg tablet 15 mg PO Q6H PRN (Reason: pain) Qty: 14 0RF Rx Instructions: Partial Fill upon patient request. ondansetron 4 mg tablet,disintegrating 4 mg PO Q6-8H PRN (Reason: nausea and vomiting) Qty: 14 0RF Referrals: Deacon Bennett MD [Physician, Urology] - 10/18/24 Print Language: Swedish
[2024-10-16 15:13] VITALS: BP 110/77; PULSE 72; RESP 18; O2SAT 96
[2024-10-16] MEDS: cefTRIAXone sodium 500 MG, Lidocaine HCl 1 % MPF 1 ML IM (15:17)
[2024-10-16 15:20] VITALS: BP 110/77; PULSE 72; RESP 18; TEMP -17.7; TEMP 0; O2SAT 96
== END 2024-10-16 15:21 | disposition home or self-care (01) ==
PROVIDERS: Nurse Practitioner Family; Emergency Provider Emergency Medicine Emergency Medical Services
DX: N50.811 Right testicular pain (principal); N44.2 Benign cyst of testis; R10.2 Pelvic and perineal pain; Z20.2 Contact with and (suspected) exposure to infections with a predominantly sexual mode of transmission; Z79.899 Other long term (current) drug therapy
CPT/HCPCS: 36415; 76870; 80053; 81003; 85025; 87491; 87591; 93975; 96372; 99284; J0696; J2003

== ENCOUNTER → 2024-10-16 11:51 | Outpatient (BNV) | payer SELFPAY | PROVIDERS: Emergency Provider Emergency Medicine Emergency Medical Services; Visit Provider Radiology Diagnostic Radiology | DX: N50.3 Cyst of epididymis (principal) | CPT/HCPCS: 93975 ==